=== PATIENT | male | born 1970 | race Caucasian/White ===

== ENCOUNTER 2020-01-14 16:42 | Inpatient (IN) ==
[2020-01-14] MEDS ORDERED: ENOXAPARIN 100 MG/ML SYRINGE SUBCUT ONE ×2 (16:47→16:48)
[2020-01-14] MEDS ORDERED: ENOXAPARIN 100 MG/ML SYRINGE SUBCUT STA (16:50)
[2020-01-14] MEDS ORDERED: ENOXAPARIN 30 MG/0.3 ML SYRINGE ONE (16:53)
[2020-01-14] MEDS ORDERED: ENOXAPARIN 60 MG/0.6 ML SYRINGE IV ONE (16:55)
[2020-01-14 17:00] LABS: Basophils # 0.1 10*3/uL (0.0-0.2); Basophils % 0.8 % (0.0-0.8); Eosinophils # 0.3 10*3/uL (0.0-0.87); Eosinophils % 2.6 % (0.00-10.9); Hematocrit 51.5 VOL% (42.0-52.0); Hemoglobin 18.1 GM/DL (14.0-18.0); Immature Granulocytes % 0.5 %; Immature Granulocytes Absolute 0.05 #; Lymphocytes # 3.4 10*3/uL (1.4-4.0); Lymphocytes % 31.6 % (21.2-54.2); Mean Corpuscular HGB Conc 35.1 GM/DL (32-36); Mean Corpuscular Volume 87.9 FL (87-102); Mean Platelet Volume 10.2 FL (9.6-12.0); Monocytes % 12.3 % (1.7-12.7); Neutrophils % 52.2 % (38.7-73.9); Platelet Count 302 T/CUMM (130-400); Red Blood Count 5.86 MC/CUMM (3.8-5.5); Red Cell Distribution Width 13.4 % (9.3-17.3); White Blood Count 10.6 T/CUMM (4-12)
[2020-01-14] MEDS ORDERED: LIDOCAINE 1% 20 ML VIAL ONE (17:05)
[2020-01-14] MEDS ORDERED: HYDROmorphone 2 MG/1 ML VIAL ONE (17:07)
[2020-01-14] MEDS ORDERED: MIDAZOLAM 2 MG/2 ML VIAL ONE (17:08)
[2020-01-14 17:23] LABS: Albumin 3.9 G/DL (3.4-5.0); Bilirubin,Total 0.8 MG/DL (0.2-1.0); Osmolality,Calculated 274.7 MOS/KG (273-304); Total Protein 8.6 G/DL (6.4-8.3)
[2020-01-14] MEDS ORDERED: TIROFIBAN 5,000 MCG/100 ML PREMIX IV ONE (17:26)
[2020-01-14] MEDS ORDERED: TIROFIBAN 5,000 MCG/100 ML PREMIX IV SCH (17:32)
[2020-01-14] MEDS ORDERED: TICAGRELOR 90 MG TABLET ONE (17:55)
[2020-01-14] MEDS ORDERED: ACETAMINOPHEN 325 MG TABLET PO PRN (18:01)
[2020-01-14] MEDS ORDERED: NITROGLYCERIN SL 0.4 MG TABLET SL PRN (18:01)
[2020-01-14] MEDS ORDERED: ZALEPLON 5 MG CAPSULE PO PRN (18:01)
[2020-01-14] MEDS ORDERED: ONDANSETRON 4 MG/2 ML VIAL IV PRN (18:01)
[2020-01-14] MEDS ORDERED: MAGNESIUM SULF RIDER 4 GM in PREMIX 1 EACH IV PRN (18:12)
[2020-01-14] MEDS ORDERED: MAGNESIUM SULF RIDER 2 GM in PREMIX 1 EACH IV PRN (18:12)
[2020-01-14 19:17] LABS: CKMB % 4.9 %
[2020-01-14 19:19] LABS: Troponin I 7.89 NG/ML (0.00-0.045)
[2020-01-14] MEDS: ROSUVASTATIN 20 MG TABLET PO SCH (21:31)
[2020-01-14] MEDS: TICAGRELOR 90 MG TABLET PO SCH (21:31)
[2020-01-14] MEDS: METOPROLOL TARTRATE 25 MG TABLET PO SCH (21:31)
[2020-01-15 03:56] LABS: Basophils # 0.1 10*3/uL (0.0-0.2); Basophils % 0.4 % (0.0-0.8); Eosinophils # 0.1 10*3/uL (0.0-0.87); Eosinophils % 0.9 % (0.00-10.9); Hematocrit 50.9 VOL% (42.0-52.0); Hemoglobin 17.7 GM/DL (14.0-18.0); Immature Granulocytes % 0.6 %; Immature Granulocytes Absolute 0.08 #; Lymphocytes # 1.8 10*3/uL (1.4-4.0); Lymphocytes % 12.6 % (21.2-54.2); Mean Corpuscular HGB Conc 34.8 GM/DL (32-36); Mean Corpuscular Volume 89.5 FL (87-102); Mean Platelet Volume 10.9 FL (9.6-12.0); Neutrophils % 75.5 % (38.7-73.9); Platelet Count 250 T/CUMM (130-400); Red Blood Count 5.69 MC/CUMM (3.8-5.5); Red Cell Distribution Width 13.7 % (9.3-17.3)
[2020-01-15 04:40] LABS: CKMB % 6.5 %; Calcium 9.2 MG/DL (8.5-10.1); Osmolality,Calculated 274.7 MOS/KG (273-304)
[2020-01-15 04:43] LABS: Troponin I 45.5 NG/ML (0.00-0.045)
[2020-01-15] MEDS: METOPROLOL TARTRATE 25 MG TABLET PO SCH (08:30)
[2020-01-15] MEDS: ASPIRIN EC 81 MG TABLET PO SCH (08:31)
[2020-01-15] MEDS: TICAGRELOR 90 MG TABLET PO SCH ×2 (08:31→20:04)
[2020-01-15 09:39] LABS: CKMB % 6.1 %
[2020-01-15 09:40] LABS: Troponin I 34.5 NG/ML (0.00-0.045)
[2020-01-15 12:09] LABS: CKMB % 6.2 %
[2020-01-15] MEDS: buPROPion XL 150 MG TABLET PO SCH (14:01)
[2020-01-15] MEDS: NEBIVOLOL 5 MG TABLET PO SCH (14:01)
[2020-01-15] MEDS: ROSUVASTATIN 20 MG TABLET PO SCH (20:04)
[2020-01-16 09:25] LABS: Basophils % 0.3 % (0.0-0.8); Eosinophils # 0.2 10*3/uL (0.0-0.87); Eosinophils % 2.2 % (0.00-10.9); Hematocrit 50.2 VOL% (42.0-52.0); Hemoglobin 17.1 GM/DL (14.0-18.0); Immature Granulocytes % 0.4 %; Immature Granulocytes Absolute 0.04 #; Lymphocytes # 1.5 10*3/uL (1.4-4.0); Lymphocytes % 14.6 % (21.2-54.2); Mean Corpuscular HGB Conc 34.1 GM/DL (32-36); Mean Corpuscular Volume 89.3 FL (87-102); Mean Platelet Volume 10.8 FL (9.6-12.0); Monocytes % 8.9 % (1.7-12.7); Neutrophils % 73.6 % (38.7-73.9); Platelet Count 207 T/CUMM (130-400); Red Blood Count 5.62 MC/CUMM (3.8-5.5); Red Cell Distribution Width 13.7 % (9.3-17.3); White Blood Count 10.4 T/CUMM (4-12)
[2020-01-16 09:38] LABS: Calcium 8.6 MG/DL (8.5-10.1); Osmolality,Calculated 274.8 MOS/KG (273-304)
[2020-01-16] MEDS: buPROPion XL 150 MG TABLET PO SCH (09:44)
[2020-01-16] MEDS: NEBIVOLOL 5 MG TABLET PO SCH (09:44)
[2020-01-16] MEDS: ASPIRIN EC 81 MG TABLET PO SCH (09:44)
[2020-01-16] MEDS: TICAGRELOR 90 MG TABLET PO SCH (09:44)
[2020-01-16] MEDS ORDERED: NICOTINE 21 MG/24 HR PATCH TRANSDERM SCH (12:30)
[2020-01-16 12:41] VITALS: BP 106/64
== END 2020-01-16 16:12 | disposition home or self-care (01) | DRG 247 ==
LOC: N.ED 16:42 → N.ICU 17:08 → N.TELEN 01-15 23:18
PROVIDERS: ADMIT Internal Medicine Cardiovascular Disease; ATTEND Internal Medicine Cardiovascular Disease
PROC: CLCCHCL (ICD-10-PCS; 2020-01-14 17:15)